=== PATIENT | female | born 1985 | race Two or more races ===

== ENCOUNTER 2018-10-08 20:12 | Emergency (ER) | payer MEDICAID ==
[~2018-10-08] VITALS: Ht 160 cm; Wt 76.7 kg
[2018-10-08 20:24] VITALS: BP 134/41
== END 2018-10-08 23:26 | disposition home or self-care (01) ==
LOC: ER 20:17
DX: F41.9 Anxiety disorder, unspecified (principal); J06.9 Acute upper respiratory infection, unspecified